=== PATIENT | female | born 1955 | race Caucasian/White ===

== ENCOUNTER 2019-06-17 10:46 | Emergency (ER) | payer OTHER ==
[~2019-06-17] VITALS: Ht 160 cm; Wt 110.7 kg
[2019-06-17 10:52] VITALS: BP 171/100; Ht 160 cm; Wt 110.7 kg
== END 2019-06-17 12:49 | disposition home or self-care (01) ==
LOC: ED 10:46
DX: S93.504A Unspecified sprain of right lesser toe(s), initial encounter (principal); I10 Essential (primary) hypertension; W22.8XXA Striking against or struck by other objects, initial encounter; Y93.89 Activity, other specified; Y92.89 Other specified places as the place of occurrence of the external cause; Y99.8 Other external cause status; Z88.0 Allergy status to penicillin
CPT/HCPCS: J2270; Q0162